=== PATIENT | female | born 1995 | race Caucasian/White ===

== ENCOUNTER 2022-02-18 13:33 | Inpatient (IN) | payer OTHER, SELFPAY ==
[2022-02-18] MEDS ORDERED: METHYLERGONOVINE 0.2MG/ML AMP IM PRN (13:57)
[2022-02-18] MEDS ORDERED: PROMETHAZINE INJ 25 MG/ML AMP IM PRN (13:57)
[2022-02-18] MEDS ORDERED: CARBOPROST TROME 250 MCG/ML IM PRN (13:57)
[2022-02-18] MEDS ORDERED: Ringers Lactate 1,000 ML IV PRN (13:57)
[2022-02-18] MEDS ORDERED: BUTORPHANOL 1 MG/ML INJ IV PRN (13:57)
[2022-02-18] MEDS ORDERED: miSOPROStoL 100 MCG TAB VAG SCH (15:00)
--- OUTSIDE RECORDS SUMMARY | 2022-02-18 15:01 | XMS REPORT | Continuity of Care Document ---
:1995 Author Organization [facility] t Address [address] [place] [address] Care Team Providers Name Role Phone Pcp, Patient Does Not Have A Primary Care Physician +[phone] Doctor Unassigned, [place] Attending Clinician Unavailable ANGELINA CAMARENA Attending Clinician Unavailable Angelina Camarena MD Attending Clinician Problems Condition Condition Condition Status Onset Resolution Last Treating Co mments Source Name Details Category Date Date Treatment Clinician Date Vaginal Vaginal Disease Active Univers itching itching 9-18 ity of 00:00: [address] Herpes Herpes Disease Active 2018-06 Univers 2-17 ity of 00:00: [address] Allergies, Adverse Reactions, Alerts Allergy Allergy Status Severity Reaction(s) Onset Inactive Treating Comm ents Source Name Type Date Date Clinician CEPHALEX DRUG Active Diarrhea Univer s IN INGREDI 1-24 ity of 00:: [address] Cephalex Propensi Active Diarrhea Univ ers in ty to 1-24 ity of adverse 00:00: [place] reaction [address] [place] [address] s [place] NO KNOWN Drug Active Univers ALLERGIE Class ity of S [facility] Social History Social Habit Start Date Stop Date Quantity Comments Source Exposure to Not sure [facility] SARS-CoV-2 [facility] (event[facility] Branch ASSERTION [facility] Alcohol intake 2021-06-25 2021-06-25 Ex-drinker [facility] 00:00:00 00:00:00 (finding) [facility] Tobacco use and 2021-01-09 2021-01-09 Never used Universit y of exposure 00:00:00 00:00:00 [facility] History of 2018-01-09 Cigarette Smoker Universi ty of tobacco use 00:00:00 [facility] Sex Ass[birth year] At [birth year] Universit y of 00:00:00 00:00:00 [facility] Smoking Status Start Date Stop Date Source Former smoker 2021-01-09 00:00:00 2021-01-09 00:00:00 Universi ty of [facility] Medications Ordered Filled Start Stop Current Ordering Indication Dosage Frequency Signature Comments Components Source Medication Medication Date Date Medication? Clinician (SIG) Name Name valACYclovi 2018-06 Yes Univer s r 500 mg 2-17 ity of tablet 00:00: [address] Branch valACYclovi 2018- Yes Univer s r 500 mg 2-17 ity of tablet 00:00: [address] Branch valACYclovi 2018- Yes Univer s r 500 mg 2-17 ity of tablet 00:00: [place] [address] Medical Branch norgestimat 2018- Yes Univer s e-ethinyl 2-17 ity of estradiol 00:00: [place] (SPRINT[facility], 00 Medical 28, ORAL) Branch valACYclovi 2018- Yes Univer s r 500 mg 2-17 ity of tablet 00:00: [address] Branch norgestimat 2019- Yes Univer s e-ethinyl 2-17 ity of estradiol 00:00: [place] ([facility], Medical 28, ORAL) Branch valACYclovi 2018- Yes Univer s r 500 mg 2-17 ity of tablet 00:00: [place] [facility] Branch norgestimat 2019- Yes Univer s e-ethinyl 2-17 ity of estradiol 00:00: [place] (S[facility], 00 Medical 28, ORAL) Branch valACYclovi 2018- Yes Univer s r 500 mg 2-17 ity of tablet 00:00: [place] [facility] Branch valACYclovi 2019- Yes Univer s r 500 mg 2-17 ity of tablet 00:00: [address] Branch valACYclovi 2018- Yes Univer s r 500 mg 2-17 ity of tablet 00:00: [place] [address] Medical Branch valACYclovi 2019- Yes Univer s r 500 mg 2-17 ity of tablet 00:00: [place] 00 Medical Branch valACYclovi 2018-06 Yes Univer s r 500 mg 2-17 ity of tablet 00:00: [place] 00 Medical Branch norgestimat 2018-06- No Unive rs e-ethinyl 2-17 -18 ity of estradiol 00:00: 00:00 [place] (SPRINT[facility], 00 :00 Medical 28, ORAL) Branch norgestimat 2018-06- No Unive rs e-ethinyl 2-17 -18 ity of estradiol 00:00: 00:00 [place] (SPRINT[facility], 00 :00 Medical 28, ORAL) Branch norgestimat 2018-06- No Unive rs e-ethinyl 2-17 -18 ity of estradiol 00:00: 00:00 [place] (S[facility], 00 :00 Medical 28, ORAL) Branch norgestimat 2018-06- No Unive rs e-ethinyl 2-17 -18 ity of estradiol 00:00: 00:00 [place] (SPRINT[facility], 00 :00 Medical 28, ORAL) Branch Vital Signs Vital Name Observation Time Observation Value Comments Source BMI 2021-06-25 19:52:00 27.68 kg/m2 [facility] Systolic blood 2021-06-25 19:52:00 124 mm[Hg] Univer sity of [facility] Diastolic blood 2021-06-25 19:52:00 85 mm[Hg] Unive rsity of [facility] Heart rate 2021-06-25 19:52:00 104 /min [facility] Body temperature 2021-06-25 19:52:00 37.33 Pam [facility] Respiratory rate 2021-06-25 19:52:00 18 /min [facility] [place] Body height 2021-06-25 19:52:00 165.1 cm [facility] Body weight 2021-06-25 19:52:00 75.439 kg [facility] Systolic blood 2021-02-16 21:19:00 116 mm[Hg] Univer sity of pressure [facility] Diastolic blood 2021-02-16 21:19:00 76 mm[Hg] Unive rsity of [facility] Heart rate 2021-02-16 21:19:00 78 /min Universi ty of [place] [facility] Body temperature 2021-02-16 21:19:00 37 Pam Univ ersity of [place] [facility] Respiratory rate 2021-02-16 21:19:00 18 /min Univ ersity of [place] [facility] Body height 2021-02-16 21:19:00 165.1 cm Universi ty of [place] [facility] Body weight 2021-02-16 21:19:00 73.936 kg Universi ty of [place] [facility] BMI 2021-02-16 21:19:00 27.12 kg/m2 [facility] Systolic blood 2021-01-09 21:03:00 120 mm[Hg] Univer sity of pressure [place] [facility] Diastolic blood 2021-01-09 21:03:00 84 mm[Hg] Unive rsity of pressure [place] [facility] Heart rate 2021-01-09 21:03:00 83 /min Universi ty of [facility] Body temperature 2021-01-09 21:03:00 36.72 Pam Univ ersity of [place] [facility] [place] Respiratory rate 2021-01-09 21:03:00 18 /min Univ ersity of [place] [facility] Body height 2021-01-09 21:03:00 165.1 cm [facility]i ty [facility] [place] [facility] Body weight 2021-01-09 21:03:00 74.208 kg [facility] [place] [facility] BMI 2021-01-09 21:03:00 27.22 kg/m2 [facility] Procedures Procedure Date / Time Performed Performing Clinician [facility] e EXTERNAL PROVIDER 2021-07-13 06:01:00 Doctor Unamalindaigned, No [facility] Name [facility] Branch POCT TEST 2021-06-25 00:00:00 [facility] POCT URINALYSIS W/O 2021-06-25 00:00:00 [facility] [place] [place] SPECIFIC GRAVITY [facility] Branch Encounters Start End Encounter Admission Attending Care Care Encounter Source Date/Time Date/Time Type Type Clinicians Facility Department ID 2021-07-13 2021-07-13 Orders Doctor LOERA [id number] Univers 00:00:00 00:00:00 Only UnassALEJANDRA hernandez [id number] ity of [facility] [id number] [place] [id number] [place] [address] Branch 2021-06-25 2021-06-25 Outpatient R ANGELINA CAMARENA [facility] [id number] Univers 13:30:00 14:25:00 ity of [facility] 2021-06-25 2021-06-25 Initial Angelina Camarena [place] [id number] Univers 13:30:00 14:25:00 [place] [id number] i ty of Visit [facility] [id number] [id number] [facility] [address] [place] 2021-06-25 2021-06-25 Outpatient R ANGELINA CAMARENA [facility] [id number] Univers 13:45:00 13:45:00 [id number] ity of [facility] 2021-02-20 2021-02-20 Telephone Angelina Camarena [facility] [id number] Univers 00:00:00 00:00:00 [place] [id number] i ty of [id number] [id number] Wy dical nal [address] [place] [address] 2021-02-16 2021-02-16 Office Angelina Camarena [facility] [id number] Univers 15:46:48 16:48:31 Visit [place] [id number] i ty [place] [id number] [id number] Wy dical nal [address] [place] [address] 2021-02-16 2021-02-16 Outpatient R ANGELINA CAMARENA [facility] [id number] Univers 16:00:00 16:00:00 [id number] ity of [facility] 2021-02-16 2021-02-16 Outpatient R ANGELINA CAMARENA [facility] [id number] Univers 16:00:00 16:00:00 ity of [facility] 2021-02-12 2021-02-12 Telephone Angelina Camarena [facility] [id number] Univers 00:00:00 00:00:00 [place] [id number] it y of Women[facility] [id number] [facility] [id number] [address] 2021-01-09 2021-01-09 Office Angelina Camarena [facility] [place] [id number] Univers 15:18:36 16:45:00 Visit [place] [id number] it y of Women's [id number] [facility] [id number] [address] 2021-01-09 2021-01-09 Outpatient R MIGUE ANGELINA [facility] [id number] Univers 15:30:00 15:30:00 [id number] [facility] 2021-01-09 2021-01-09 Outpatient R ANGELINA CAMARENA [facility] [id number] Univers 15:30:00 15:30:00 [facility] [place] Results Test Description Test Time Test Comments Results Result Comments Source POCT URINALYSIS W/O SPECIFIC GRAVITY 2021-06-25 19:44:00 Test Item Value Reference Range Interpretation Comme nts POCT PH U (test code = 3254) 6 mg/dl 5-8 POCT U LEUK EST (test code = 3263) trace Negative - Negative POCT U NIT (test code = 3262) negative Negative - Negative POCT U PROT (test code = 3259) negative Negative - Negative POCT U GLU (test code = 3256) negative Negative - Negative POCT U KETONE (test code = 3258) negative Negative - Negative POCT U BLD (test code = 3257) negative Negative - Negative [id number] 19:43:00 Test Item Value Reference Range Interpretation Comments POCT PREG (test code = 1605) Positive On board controls acceptable with C Yes Line (test code = 3574) POCT PREG LOT # (test code = 3575) POCT PREG TEST DATE (test code = 3576) [facility]
[2022-02-18 16:25] LABS: MPV 10.1 fL (7.6-11.3)
[2022-02-18 16:35] LABS: Specific Gravity 1.007 (1.005-1.030); Urine Bilirubin NEGATIVE (Negative); Urine Blood Negative (Negative); Urine Clarity Clear (Clear); Urine Color Colorless (Yellow); Urine Glucose NEGATIVE (Negative); Urine Protein NEGATIVE (Negative); Urine RBC <5 /HPF (None Seen); Urine Urobilinogen Normal (Normal)
[2022-02-18 16:42] LABS: SARS-CoV-2 Antigen Rapid Res Negative (Negative)
[2022-02-18 16:43] VITALS: BMI 34.9
[2022-02-18 16:52] LABS: Absolute Lymphocytes (CBC) 1.8 K/uL (0.7-4.9); Hematocrit 34.3 % (36.0-45.0); MCV 83.7 fL (80-100)
[2022-02-18] MEDS ORDERED: ZOLPIDEM TARTRATE 10 MG TABLET PO ONE (19:13)
[2022-02-18] MEDS: Ringers Lactate 1,000 ML IV SCH (19:30)
[2022-02-18] MEDS ORDERED: OXYTOCIN/LR 20 UNITS/1,000 ML BAG IV SCH (20:00)
--- NOTE | 2022-02-18 20:52 | PREOPHP ---
Date of Admission: 02/18/2022 History Of Present Illness: This is a 26-year-old, primigravida, at 39 weeks and 2 days, followed antepartum without complications. History of herpes. She is in herpes free interval and is on antiviral medicines at this point. Full discussion, pros and cons about Cytotec and labor induction. Family History: Father with hypertension. One of the grandparents with a cleft lip. Past Surgical History: Patient has had her tonsils and adenoids removed. Allergies: SHE IS ALLERGIC TO KEFLEX. Medications: She has been on valacyclovir on occasions and has been on antiviral medications daily for the last 3 to 4 weeks. Social History: Does not smoke. Physical Examination: HEENT: Clear. Pupils equal, round, reactive to light and accommodation. Conjunctivae well perfused. No oral, lingual, or buccal lesions. Chest and Lungs: Clear. Heart: Without murmurs, thrills, heaves, or rubs. Breasts: Without masses on previous visits. Abdomen: Term size. Extremities: Clear. Normal reflexes. No edema. Cervix is 1.5 cm, still somewhat posterior, 40% to 50% effaced. Vertex is still at -2 station but definitely vertex. Baby looks good on the monitor. Her initial blood pressure was in the 160 range systolic, then the next blood pressure is . She has been negative in the office for protein or edema and blood pressures have been completely normal, but we will monitor that closely. This was discussed with the patient's . She knows if she becomes preeclamptic during the labor, she will be started on magnesium sulfate. Full labor talk given. Anticipate delivery sometime later tomorrow. Cytotec 50 mcg inserted and anticipate 2 more doses every 6 hours if needed. ALISON/BAILEE Voice ID: [id number]
[2022-02-18] MEDS ORDERED: ZOLPIDEM TARTRATE 5 MG TABLET ONE (21:55)
[2022-02-19 03:27] LABS: RPR (Rapid Plasma Reagin) NON-REACT (NON-REACT)
[2022-02-19] MEDS: Ringers Lactate 1,000 ML IV SCH ×2 (04:01→12:12)
[2022-02-19] MEDS ORDERED: METHYLERGONOVINE 0.2MG/ML AMP IM PRN (07:45)
[2022-02-19] MEDS ORDERED: CARBOPROST TROME 250 MCG/ML IM PRN (07:45)
[2022-02-19] MEDS ORDERED: LIDOCAINE 1% MPF 30 ML VIAL ONE (07:58)
--- NOTE | 2022-02-19 09:13 | PN ---
A 26-year-old, primigravida. Had Cytotec inserted 1 time, this resulted in contractions every 1-2 mi nutes. The patient was started on Pitocin earlier this morning. She had Ambien last night around 10 p.m. Baby looks good. Blood pressures are still within a reasonable range. Protein is negative. She has no signs of preeclampsia. This morning, she is a good 4.5, maybe 5 cm, 80% to 90% effaced, v ertex, -1 station. Rupture of membranes, clear fluid. Anticipate more rapid progress. The patient is attempting natural childbirth. She knows she can have IV medications and of course if she chooses epidural. I will check her again in about an hours and see what kind of progress we are making, but I think we are getting ready to get into the active phase of labor. The patient wants to get up out of her bed. After the fluid leakage subsides, we will let her get up, get in the rocking chair, sta nd beside the bed or get some movement around the room. Doing quite well at this point. ALISON/BAILEE Voice ID: [id number] Report ID: [id number]
[2022-02-19] MEDS ORDERED: 0.2% ROPIVACAINE (200 MG/100 ML) BAG EP ONE (09:27)
[2022-02-19] MEDS ORDERED: ROPIVACAINE HCL 0.2% 20ML AMP EP ONE (09:28)
[2022-02-19] MEDS ORDERED: FENTANYL CITR 100 MCG/2 ML IV ONE (09:29)
[2022-02-19] MEDS ORDERED: BUPIVACAINE 0.25% PF 10 ML VIAL ONE (10:20)
[2022-02-19] MEDS ORDERED: LABETALOL 20 MG/4ML SYRINGE IV ONE (13:40)
[2022-02-19] MEDS ORDERED: NA CIT/CITRIC AC 30 ML ORAL UDC ONE (14:42)
[2022-02-19] MEDS ORDERED: CLINDAMYCIN 900MG/D5W 900 MG/50 ML IVPB IV ONE (14:42)
[2022-02-19] MEDS ORDERED: OXYTOCIN 10 UNIT/ML ML ONE (14:43)
[2022-02-19] MEDS ORDERED: FAMOTIDINE 20 MG/2 ML VIAL IV ONE (14:43)
[2022-02-19] MEDS ORDERED: METOCLOPRAMIDE 10 MG/2mL INJ ONE (14:43)
[2022-02-19] MEDS ORDERED: TERBUTALINE SULF 1 MG/1ML ONE (15:44)
--- NOTE | 2022-02-19 16:21 | PN ---
The patient initially had Stadol 1 mg IV, Phenergan 25 mg IM, then is requested epidural anesthesia. At that time, she was 5. She is very comfortable now in fact cannot really feel the contractions. We can move her legs. Right now, we will this leave the epidural where it is as we delive ry. If she cannot feel the contractions, we will probably cut it back a little bit. She is now 6.5 cm, 90%, almost +1 station. She was having back pain before, probably occiput posterior. I think th e baby may start to rotate at this point. I think we should be getting into the active phase of labo r. We will check her again in an hour or sooner if needed, but we are starting to make more rapid pr ogress at this point. ALISON/BAILEE Voice ID: [id number] Report ID: [id number]
[2022-02-19] MEDS ORDERED: BISACODYL 10 MG RECTAL SUPP PR PRN (16:32)
[2022-02-19] MEDS ORDERED: Oxycodone HCl/Acetaminophen 1 TAB TAB PO PRN ×2 (16:32)
[2022-02-19] MEDS ORDERED: DIPHENHYDRAMINE 25 MG TAB/CAP PO PRN (16:32)
[2022-02-19] MEDS ORDERED: ONDANSETRON 4 MG (ODT) TAB PO PRN (16:32)
[2022-02-19] MEDS ORDERED: ONDANSETRON 4 MG/2 ML VIAL IV PRN (16:32)
[2022-02-19] MEDS ORDERED: ACETAMINOPHEN 500 MG TAB PO PRN ×2 (16:32)
[2022-02-19] MEDS ORDERED: D5LR 1,000 ML with OXYTOCIN 20 UNIT IV SCH ×2 (17:00)
[2022-02-19] MEDS ORDERED: OXYTOCIN/LR 20 UNIT/1,000 ML BAG IV SCH (17:00)
[2022-02-19] MEDS ORDERED: LABETALOL 20 MG/4ML SYRINGE IV PRN (18:33)
[2022-02-19 18:46] LABS: Specific Gravity 1.007 (1.005-1.030); Urine Bilirubin NEGATIVE (Negative); Urine Blood 3+ (OVER) (Negative); Urine Clarity Clear (Clear); Urine Color Light-Yellow (Yellow); Urine Glucose NEGATIVE (Negative); Urine Mucus Slight /HPF (None Seen); Urine Protein TRACE (Negative); Urine Urobilinogen Normal (Normal); Urine pH 6.5 (5.0-7.0)
--- NOTE | 2022-02-19 18:51 | PN ---
We cut the epidural maintenance dose from 8 to 6. The patient is being able to feel the contractions a little bit better. She is pushing very well. Baby is still about +1 station, little bit of caput forming. Baby looks good, but the patient's blood pressures are occasionally in the 160 range, but that is when she is pushing. The patient's has been informed of course at this point all we can do is encourage her, let her push, if she brings the baby down to an advanced station where I cou ld put on a vacuum assist to help her, we will, but at this point, the baby is too high. She knows i f she cannot bring the baby down, even at this point we could still end up with a . Full dis cussion. ALISON/BAILEE Voice ID: [id number] Report ID: [id number]
--- NOTE | 2022-02-19 19:21 | PN ---
The patient has been completed and pushing after about an hour and 17 minutes. The baby is still abo ut +1, possibly +2 station, but in my opinion still too hard to put on forceps or vacuum extraction. During the , we discussed this very thing with shoulder dystocia being discussed. Her husb and is quite a large individual and difficult to say of course how big the baby is, but the patient i s pushing very effectively. She is having good strong contractions every 2 minutes. We have given h er labetalol for her blood pressure 10 mg x2. The last blood pressure was 166, which is an improveme nt over 184. She in my opinion still does not have preeclampsia, but elevated blood pressures during her labor. Protein was negative on admission and she again has minimal swelling and normal reflexes . We will let the patient to push for another 0.5 hour or so and then make a decision about vacuum-a ssisted delivery or at that point. This has been discussed during the and again t shanna on several occasions. ALISON/BAILEE Voice ID: [id number] Report ID: [id number]
[2022-02-19 19:36] VITALS: O2SAT 98
[2022-02-20] MEDS ORDERED: CLINDAMYCIN 900MG/D5W 900 MG/50 ML IVPB IV ONE (00:30)
--- NOTE | 2022-02-20 03:13 | OP ---
Surgeon: Wilbur Rendon MD A 26-year-old primigravida at 39 weeks 2 days, had Cytotec inserted yesterday afternoon, 50 mcg 1 michelle e. This resulted in contractions every 1-2 minutes. The patient was then started on oxytocin the ne xt morning. This morning, she was approximately 3.5 to 4 cm, rupture of membranes, clear fluid. Bab y was still at -1 to possibly -2 station. Had Stadol 1 mg IV, Phenergan 25 mg IM and then at approxi mately 5 cm requested and received epidural anesthesia. The patient went to complete, but the baby w as occiput posterior, never came down plus about +1 station. She pushed for a good hour and a half t o 45 minutes, but could not bring the baby down to the point where we could put on forceps or vacuum extraction. She requested at that time for primary section. Infection; blood loss; anesthe tic complications; injury to bladder, bowel, ureter; postoperative complications; clots in legs; pneu monia discussed. The patient knows fully well these do not constitute all of the possible problems t hat could occur during or following surgery. Epidural was reconstituted and gave good effect. She w as taken to surgery, put on the table, prepped and draped. Time-out was performed. A low transverse uterine incision was created. Incision was carried to the fascia. The fascia was incised and incis ion carried transversely bilaterally. Dr. Cannon, shipping and receiving assistant surgeon and Dr. Dudley for anesthesia. After the fascia was incised, the fascial plane was developed with blunt and sharp dissection, both cephalad and then the caudad area. Peritoneal defect was entered and retraction was applied. A low transverse bladder flap was developed. A low transverse uterine incision created. At this time a 9 pounds 15-ounce male infant was delivered with Apgars 9 and 9. The head was significantly impacted into the vagina. Attempts to raise the head were not successful. Therefore, the head was moved to t he side slightly and this resulted in the head coming above the uterine incision so that it could be delivered and the baby was delivered easily at that point. Placenta was removed manually. Uterus cl eared off clot and blood. Membranes stripped away. The patient had been given 900 mg of Cleocin as she is allergic to cephalosporins. Hemabate was administered and 10 units of Pitocin was injected in to the myometrial tissue as well as IV drip Pitocin. Estimated blood loss during the procedure was 1 000 cc. The uterine incision was closed with a running locked stitch of 1 chromic followed by anothe r running locked stitch of 1 chromic followed by a 5-6 stitches along the suture line especially in t he angle for complete hemostasis. The gutters were cleared off clot and blood. Uterus replaced in t he peritoneal cavity. One uzdyci-[id number] stitch was placed in the right angle and again no further bleeding was seen. A small abrasion on the anterior surface of the uterus with cauterized, about siz e of a quarter to the patient's right side. During the delivery, it was at one point that I decided to do a vertical extension of the incision in the midline. The bandage scissors did not fit adequate ly and I could not visualize, so this was abandoned. The rectus muscles were reapproximated using 2 sutures of 0 Vicryl. The fascia was closed with 1 PDS running from either angle to the midline. Sub cutaneous tissue closed with 2-0 plain. [place] were used for the skin. The patient tolerated all p rocedures well and was transferred back to her room in good condition. Final Diagnoses: Term intrauterine at 39 weeks and 3 days at time of delivery, Cytotec for cervical ripening and labor induction, failure to progress in labor, primary section, epidu ral anesthesia, mild uterine hypotonus, and persistent occiput posterior. ALISON/BAILEE Voice ID: [id number] Report ID: [id number]
[2022-02-20] MEDS: KETOROLAC 30 MG/ML INJ IV PRN ×2 (03:26→12:20)
[2022-02-20] MEDS: miSOPROStoL 100 MCG TAB PO PRN ×4 (03:35→20:18)
[2022-02-20] MEDS: IBUPROFEN 600 MG TAB PO PRN ×2 (07:32→18:27)
--- NOTE | 2022-02-20 11:19 | PN ---
Postoperatively, blood pressures are improving. Lochia last night was slightly heavy, so they gave h er Cytotec. We gave her 3 more 1 every 4 hours. Conjunctivae are well perfused. This morning, she is alert and reporting no discomfort other than last night. She had Toradol IV. Will begin ambulati on today sometime around lunch or early, but afterwards if everything is normal, we will get rid of t he Bedoya and the IV. Full postoperative talk given. We will keep her today, probably send her home tomorrow afternoon if all goes well. She has had her Tdap immunization. She has no post epidural pr oblems at this point. Pulses have been throughout the labor and . We will monitor that ca refully. Thus far doing well. ALISON/BAILEE Voice ID: [id number] Report ID: [id number]
[2022-02-20] MEDS ORDERED: MAGNESIUM HYDROXIDE 8% 30 ML PO PRN (16:32)
[2022-02-21] MEDS: IBUPROFEN 600 MG TAB PO PRN ×2 (00:29→08:35)
[2022-02-21] MEDS ORDERED: POLYETHYL GLY 3350 17 GM/DOSE PO ONE (08:00)
--- NOTE | 2022-02-21 08:16 | DS ---
Hospital Course: 26-year-old primigravida, 39 weeks 2 days, had Cytotec inserted, next day was in go od active labor progressed to complete, pushed for an hour and a half to an hour and 45 minutes but d id not bring the vertex down enough to apply forceps or vacuum extraction. Had epidural anesthesia. This was used for section. Infection; blood loss; anesthetic complications; injury to blad migdalia, bowel, ureter; postoperative complications; clots in legs; and pneumonia discussed prior to the surgery. At the time of surgery, she was delivered of a 9 pounds 15 ounces male infant, 's 9 an d 9. The head was quite wedged into the pelvis, but after, was brought out of the pelvis and deliver ed easily. She had mild uterine hypotonus. Was given Hemabate, as her blood pressures were slightly elevated during the labor. Was also given intramyometrial Pitocin 10 units and IV drip Pitocin. Est imated blood loss, 1000 cc. Baby was noted also to be persistent occiput posterior. As she is aller gic to cephalosporins, was given Cleocin pre and postop for prophylaxis. Postoperatively, is afebrile , ambulating, voiding, lochia is normal. Her pulses went up the entire time but she has had no probl ems whatsoever. Hematocrit went from approximately 34 to 27. She knows she should need to take extr a vitamins and iron for some time to come. She will be . Mother is Rh positiv e, negative strep, negative COVID, and immune to Rubella. For dismissal, patient will be given trama dol to be taken on an as needed basis. Right now, she has just taken Motrin 600 mg and plans to cont inue that but we will have the tramadol as a backup if needed. She is to be seen in my office next w karuk to report any temperature elevation of 100 degrees or greater, severe pain, heavy bleeding, or an y other type of abnormalities. She has had her Tdap immunization. She knows if she wants a flu shot which is suggested, she can drop by my office today or tomorrow and get a flu shot. also en couraged to get a flu shot. Final Diagnoses: Term intrauterine , Cytotec for cervical ripening, labor induction, failur e to progress in labor, persistent occiput posterior, macrosomia, mild uterine hypotonus. ALISON/BAILEE Voice ID: [id number] Report ID: [id number]
[2022-02-21 09:00] VITALS: BP 132/77; TEMP 97.4
[2022-02-21 11:30] LABS: HBsAG Nonreactive (Nonreactive)
== END 2022-02-21 12:25 | disposition home or self-care (01) | DRG 788 ==
LOC: 2ND-WC 14:58
PROVIDERS: ADMIT Specialist; ATTEND Specialist
PROC: 10D00Z1 Extraction of Products of Conception, Low, Open Approach (ICD-10-PCS; principal; 2022-02-20)
PROC: 3E0P7VZ Introduction of Hormone into Female Reproductive, Via Natural or Artificial Opening (ICD-10-PCS; 2022-02-20)
DX: O62.2 Other uterine inertia (principal); O61.9 Failed induction of labor, unspecified; Z37.0 Single live birth; Z3A.39 39 weeks gestation of pregnancy; Z20.822 Contact with and (suspected) exposure to COVID-19
CPT/HCPCS: 36415; 81001; 85014; 85025; 86592; 86850; 86900; 86901; 87340; 87811; 88307; A4216; G0433; J0595; J2210; J2250; J2405; J2550; J2590; J2765; J2795; J3010; J3105; J7120; J7121